=== PATIENT | male | born 1955 | race Caucasian/White ===

== ENCOUNTER 2017-10-17 05:44 | Day surgery (SDC) | payer BC ==
[2017-10-17] MEDS ORDERED: DIPRIVAN 200 MG/20 ML IV ONE (05:45)
[2017-10-17] MEDS ORDERED: Versed 2 MG/2 ML Injection IV ONE (05:45)
[2017-10-17] MEDS ORDERED: Lactated Ringers 1,000 ML IV SCH (07:00)
--- NOTE | 2017-10-17 09:11 | OP ---
SURGERY DATE/TIME: 10/17/2017809 PREOPERATIVE DIAGNOSIS: Screening colonoscopy. POSTOPERATIVE DIAGNOSIS: Diverticulosis. PROCEDURE: Colonoscopy. SURGEON: Parish Bonner M.D. ANESTHESIA: MAC by Luis Alfredo Pryor CRNA. ESTIMATED BLOOD LOSS: None. SPECIMENS: None. DESCRIPTION OF PROCEDURE: The patient was taken to the endoscopy suite and underwent monitored anesthesia. Digital rectal exam showed normal sphincter tone and no internal lesions. The scope was inserted into the rectum and sequentially the entire colonic mucosa was traversed. The level of cecum was reached and verified with direct visualization of ileocecal valve. Upon withdrawal diffuse diverticulosis is noted throughout most of the length of the colon. These were scattered and there were no significant focal areas of consolidation, etc. Prep was noted to be fair. There were some semisolid stool in several areas throughout the length but there were no obvious lesions in the mucosa throughout the entire length of the colon. Prior to withdrawal retroflexion was performed and was within normal limits. The scope was removed and the patient was transferred to the recovery room in excellent condition.
[2017-10-17 10:03] VITALS: BP 115/78; PULSE 51; O2SAT 97
== END 2017-10-17 09:55 | disposition home or self-care (01) ==
LOC: SDC 05:44
PROVIDERS: ATTEND Family Medicine
PROC: 0DJD8ZZ Inspection of Lower Intestinal Tract, Via Natural or Artificial Opening Endoscopic (ICD-10-PCS; principal; 2017-10-17)
DX: K57.90 Diverticulosis of intestine, part unspecified, without perforation or abscess without bleeding (principal); Z12.11 Encounter for screening for malignant neoplasm of colon
CPT/HCPCS: 00810; J2250; J2704

== ENCOUNTER 2025-06-22 09:53 | Day surgery (SDC) | payer MEDICARE ==
--- NOTE | 2025-06-22 09:36 | HP ---
HISTORY AND PHYSICAL HISTORY OF PRESENT ILLNESS: Patient is a 70-year-old, had a colonoscopy by Dr. Bonner. Had several polyps as well as rectal polypoid lesions. Per Dr. Bonner, had some invasive upon polyp itself. Needs flexible sigmoidoscopy follow-up to confirm the location and saniya the location. Also, has an MRI pending. Family history negative for colon cancer. CEA post-op was 1.2, but we did not have any pictures available from Dr. Bonner' procedure at this time. PAST MEDICAL HISTORY: History of BPH, hyperlipidemia, hypertension, depression. MEDICATIONS: Xarelto, taken some Tadalafil and sildenafil in the past, rosuvastatin, lisinopril, Flomax, fenofibrate, escitalopram, Advil. ALLERGIES: No known drug allergies. PAST SURGICAL HISTORY: Had tonsillectomy, had bilateral knee arthroplasty, had inguinal hernia repair in the past, had colonoscopy. SOCIAL HISTORY: No smoking or alcohol abuse. FAMILY HISTORY: Heart disease. REVIEW OF SYSTEMS: Twelve systems reviewed. No chest pain or palpitations. All other systems negative or noncontributory as above and per preadmission questionnaire. PHYSICAL EXAMINATION: GENERAL: Height 5 feet 8 inches, BMI 34.97. No acute distress. HEENT: Sclerae anicteric. Extraocular movements are intact. NECK: No JVD. CARDIOVASCULAR: Regular rate and rhythm. RESPIRATORY: Clear. ABDOMEN: Soft. SKIN: Dry. EXTREMITIES: No cyanosis or edema. NEUROLOGIC: Alert and oriented, moving all extremities symmetrically. PSYCHIATRIC: Appropriate mood and affect. RECTAL: Deferred until time of endoscopy exam. Declined at this time. 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 He needs follow-up flexible sigmoidoscopy to confirm how deep it is and to saniya the location. Needs MRI results for whether he is a candidate for consideration for surgery or other treatment options such as neoadjuvant chemo and radiation. Risks explained in detail including but not limited to bleeding, infection; risk of bowel injury; possible requiring open procedure; risk of missed or incomplete exam possibly requiring barium enema or swallow; possible missed or non-diagnosis, but not limited to. Hold thinners pre-op, also needs cardiac clearance eventually for possible open procedure. Continue medication for heart disease, hyperlipidemia, hypertension. Schedule outpatient under MAC anesthesia for sigmoidoscopy. Patient will decided on either bowel prep pre-op or whether he needs soap-suds enema followed by a couple Fleet enema prior to procedure if he decides not to do bowel prep.
[2025-06-22] MEDS ORDERED: Lactated Ringers 1,000 ML IV ONE (10:15)
[2025-06-22] MEDS: Lactated Ringers 1,000 ML IV SCH (10:20)
[2025-06-22 10:28] VITALS: RESP 18
[2025-06-22 10:50] LABS: Calcium 9.8 mg/dL (8.4-10.2); Carbon Dioxide 23.0 mmol/L (22-30); Creatinine 1 1.19 mg/dL (0.66-1.25); EST GLOMERULAR FILTRATION RATE 66.1 ML/MIN; Glucose 135.0 mg/dL (74-106); Potassium 4.3 mmol/L (3.5-5.1)
[2025-06-22] MEDS ORDERED: propofoL IV ONE (11:42)
[2025-06-22 12:36] VITALS: O2SAT 94
[2025-06-22 12:46] VITALS: BP 141/85; PULSE 62; TEMP 97.7
--- NOTE | 2025-06-23 12:17 | OP ---
SURGERY DATE/TIME: 06/22/2025 [id number] PREOPERATIVE DIAGNOSES: History of rectal cancer arising in a rectal polyp removed by Dr. Bonner, need for followup endoscopy for marking location and reevaluation. POSTOPERATIVE DIAGNOSES: 1) Diverticulosis. 2) Small early polyps versus hyperplastic lesions rectosigmoid and proximal rectum. 3) Distal rectal scar from recent polypectomy site from Dr. Bonner' endoscopy procedure. PROCEDURES: 1) Flexible sigmoidoscopy to splenic flexure with hot biopsy and removal of rectosigmoid and colon polyps x2, rectal polyp x1 hot biopsy polypectomy. 2) Ink spot tattoo of distal margin of ulcer scar from recent polypectomy per Dr. Bonner' endoscopy procedure to saniya location. 3) ASA class 3. SURGEON: Russell Cole MD ESTIMATED BLOOD LOSS: Minimal. INDICATIONS: Consent was obtained. DESCRIPTION OF PROCEDURE AND FINDINGS: The patient was taken to the endoscopy room. MAC anesthesia induced. After official time-out and no disagreement with planned procedure, digital rectal exam and no large palpable masses were noted. Videocolonoscope passed up to the splenic flexure and carefully withdrawn. Did have some diverticulosis in the visualized part of the left colon. Prep overall was good. A little bit of liquidy stool. Scope was pulled back to the rectosigmoid. Two small early polyps versus hyperplastic lesions removed with hot biopsy forceps. Another one in the proximal rectum, early polyp versus hyperplastic lesion removed with hot biopsy polypectomy. Good hemostasis noted. Otherwise, scope pulled back. There were no signs of any large masses. There was an ulcer scar very-distal rectum that seemed to be 2.5 to 3 cm from the anorectal margin. This seemed to be where the polypectomy site, it seemed to be much further distal than reported on prior endoscopic procedure. There did not appear to be anything up higher at 10 cm. No signs of any recent biopsies. I felt I should saniya this in case it continued to heal further. One mL in 1 location, 0.5 mL in another location just to the distal margin. Again, the distal margin of this seemed to be about 2.5 to 3 cm in from the anorectal margin. The scope was withdrawn. The patient tolerated the procedure well. Findings discussed with the . It was felt as this was much further downstream, likely would recommend tertiary referral as the patient might need consideration of coloanal anastomosis or other procedures. May prefer to be referred to [facility], so will have the office staff work on making that arrangement. He has an MRI pending at this time. Will see him in the office next week.
== END 2025-06-22 12:55 | disposition home or self-care (01) ==
LOC: SDC 09:53
PROVIDERS: ATTEND Surgery
DX: Z08 Encounter for follow-up examination after completed treatment for malignant neoplasm (principal); Z85.048 Personal history of other malignant neoplasm of rectum, rectosigmoid junction, and anus; I10 Essential (primary) hypertension; K57.30 Diverticulosis of large intestine without perforation or abscess without bleeding; K63.5 Polyp of colon